=== PATIENT | female | born 1955 | race Caucasian/White ===

== ENCOUNTER → 2020-10-24 | Outpatient (CLI) | payer OTHER ==
[~2020-10-24] MED LIST: DULOXETINE HCL60 MG PO; FISH OIL 1,001000 M3 PO; FLEXERIL PO; GLUCOPHAGE1000 MG PO; LANTUS SUBQ; LISINOPRIL20 MG PO; LOVASTAT40 PO; NOVOLIN R100 UNIT/1 SUBQ; OMEPRAZOLE40 MG PO; ZOFRAN4 MG PO
== END ==
LOC: LAB 08:51
PROVIDERS: ATTEND Internal Medicine Gastroenterology
DX: Z20.822 Contact with and (suspected) exposure to COVID-19 (principal)

== ENCOUNTER → 2020-10-25 | Outpatient (CLI) | payer OTHER ==
[~2020-10-25] VITALS: Ht 152.4 cm; Wt 74.8 kg
--- NOTE | 2020-11-01 12:06 | PATH ---
[facility] [place], [place] [address] [place] [address] PATHOLOGY RPT PROCEDURE Name: KETTY WHITNEY Room #: REG [facility] Christine.#: [id number] Admission: 10/25/20 Date of : 51 Discharge: Report #: [id number] Path Case #: [id number] [facility] Accession Number: [id number] . 01 Material submitted: . gastrointestinal site - GASTRIC POLYPS . 01 Clinician provided ICD-10: y . 01 Clinical history: . MELENA, ANEMIA . 02 Diagnosis: Stomach "gastric polyps", endoscopic biopsy: - Hyperplastic polyp with acute and chronic inflammation, focal mucosal erosion, reactive change of gastric glands, and mild focal epithelial atypia. - Negative for intestinal metaplasia, dysplasia, and malignancy. (ART:laura; 10/31/2020) [facility] 11/01/2020 1116 Local . 02 Comment: The case is seen in co-review with Dr. Brennon Fritz who concurs with the above diagnosis. (LATHAK:laura; 10/31/2020) . 02 Electronically signed: . Lincoln Verde MD, Pathologist NPI- [id number] . 01 Gross description: . The specimen is received in formalin, labeled "Ketty Whitney", "gastric polyp" on the container and "gastric polyps" on the requisition. Received are multiple segments of polypoid, pale aceves soft tissue ranging in size from 0.3 cm to 0.5 cm. The specimen is entirely submitted in cassette A1.(SNA; 10/26/2020) [facility] 10/26/2020 1554 Local . 02 Microscopic: . Immunohistochemical stain results (properly controlled): AE1/AE3 (A1) - highlights mucosal epithelial cells and gastric glands. (ART:laura; 10/31/2020) . 02 Pathologist provided ICD-10: K29.00, K29.50, K31.7 . [address] [address] PATHOLOGY RPT PROCEDURE Name: KETTY WHITNEY Room #: REG [facility]#: [id number] Admission: 10/25/20 Date of : 51 Discharge: Report #: [id number] Path Case #: [id number] CPT . 829779, [id number] Specimen Comment: Report sent to / Performed at: 01 [facility] [place] [address] [id number] MD Jagjit Chu MD Phone: [phone] Performed at: 02 [id number] [address] [id number] MD Brennon Fritz MD Phone: [phone]
== END | disposition home or self-care (01) ==
LOC: GI 09:14
PROVIDERS: ATTEND Internal Medicine Gastroenterology
DX: D50.9 Iron deficiency anemia, unspecified (principal); K92.1 Melena; K31.7 Polyp of stomach and duodenum; K29.50 Unspecified chronic gastritis without bleeding; K29.00 Acute gastritis without bleeding; I10 Essential (primary) hypertension; E11.9 Type 2 diabetes mellitus without complications; E78.00 Pure hypercholesterolemia, unspecified; K21.9 Gastro-esophageal reflux disease without esophagitis; F32.9 Major depressive disorder, single episode, unspecified; Z98.890 Other specified postprocedural states; Z79.899 Other long term (current) drug therapy; Z79.4 Long term (current) use of insulin; Z86.73 Personal history of transient ischemic attack (TIA), and cerebral infarction without residual deficits; Z90.710 Acquired absence of both cervix and uterus; Z87.891 Personal history of nicotine dependence
CPT/HCPCS: 62110; 62900